=== PATIENT | female | born 1975 | race Caucasian/White ===

== ENCOUNTER 2017-03-06 21:55 | Emergency (ER) | payer BC ==
[~2017-03-06 21:55] MED LIST changes: -IOHEXOL 240 MG/ML 50ML VIAL. ONE; -IOHEXOL 300 MG/ML 75 ML VIAL. IV ONE
[2017-03-06 22:00] VITALS: BP 108/67
[2017-03-06] MEDS ORDERED: IV NORMAL SALINE 1,000ML 1,000 ML IV SCH (23:00)
[2017-03-06] MEDS ORDERED: ONDANSETRON PF 4 MG/2 ML VIAL. IV ONE (23:00)
--- NOTE | 2017-03-06 23:01 | EKG ---
[address] [address] Test Date: 2017-03-06 Test Time: 22:59:43 Pat Name: JESSIE MARTIN Department: Room: Gender: F Rn Home Care: : 1975 Requested By: MILEY ZHU Order Number: [id number] Reading MD: Cesar Merino Measurements Intervals [place] Rate: 57 P: 37 CO: 178 QRS: 59 QRSD: 86 T: 34 QT: 402 QTc: 394 Interpretive Statements SINUS RHYTHM Electronically Signed On 03-12-2017 9:13:56 CDT by Cesar Merino
[2017-03-06] MEDS: MORPHINE SULFATE 2 MG/ML DISP.SYRIN. IV/SQ PRN (23:13)
[2017-03-06 23:21] LABS: BASO % 1 % (0-3); EOS # 0.2 x10^3/uL (0.0-0.7); EOS % 3 % (0-3); HEMATOCRIT 35.9 % (36.0-47.0); HEMOGLOBIN 12.6 g/dL (12.0-15.5); LYMPH # 4.2 x10^3/uL (1.0-4.8); LYMPH % 59 % (24-48); MEAN CORPUSCULAR HEMOGLOBIN 34 pg (25-35); MEAN CORPUSCULAR HGB CONC 35 g/dL (31-37); MEAN CORPUSCULAR VOLUME 96 fL (79-100); MONO # 0.7 x10^3/uL (0.0-1.1); MONO % 10 % (0-9); NEUT % 28 % (31-73); PLATELET COUNT 190 x10^3/uL (140-400); RED BLOOD COUNT 3.75 x10^6/uL (3.50-5.40); WHITE BLOOD COUNT 7.1 x10^3/uL (4.0-11.0)
[2017-03-06 23:24] LABS: BARBITURATES NEG (NEG); BENZODIAZEPINES POS (NEG); CANNABINOIDS POS (NEG); COCAINE NEG (NEG); METHADONE NEG (NEG); OPIATES NEG (NEG); PHENCYCLIDINE NEG (NEG)
[2017-03-06 23:25] LABS: BACTERIA,URINE FEW /HPF (0-FEW); BILIRUBIN,URINE NEG (NEG); CLARITY,URINE CLEAR; COLOR,URINE YELLOW; GLUCOSE,URINE NEG (NEG); NITRITE,URINE POS (NEG); RBC,URINE 0 /HPF (0-2); SQUAMOUS EPITHELIAL CELL,UR FEW /LPF; UROBILINOGEN,URINE 8 mg/dL (0.2 mg/dL)
[2017-03-06 23:29] LABS: AMPHETAMINE/METHAMPHETAMINE POS (NEG)
[2017-03-06 23:33] LABS: PREG TEST PT QUAL NEGATIVE (NEG)
--- NOTE | 2017-03-06 23:37 | ED.ADGEN ---
Past History Past Medical History: No Pertinent History Past Surgical History: No Surgical History Alcohol Use: Occasionally Drug Use: None Adult General Chief Complaint Chief Complaint Abdominal pain HPI HPI Patient is a 41 year old female who presents with 2 days of right upper quadrant/epigastric pain. She states it is a constant not and sometimes is made worse but nothing she does makes it better or worse. She has had some nausea but no vomiting. She denies any constipation or diarrhea. She has had a gastric sleeve, total hysterectomy and laparoscopic surgeries of her abdomen. Review of Systems Review of Systems Constitutional: Denies fever or chills [] Eyes: Denies change in visual acuity, redness, or eye pain [] HENT: Denies nasal congestion or sore throat [] Respiratory: Denies cough or shortness of breath [] Cardiovascular: No additional information not addressed in HPI [] GI: Denies nausea, vomiting, bloody stools or diarrhea, positive for abdominal pain : Denies dysuria or hematuria [] Musculoskeletal: Denies back pain or joint pain [] Integument: Denies rash or skin lesions [] Neurologic: Denies headache, focal weakness or sensory changes [] Endocrine: Denies polyuria or polydipsia [] Current Medications Current Medications Current Medications Medications (Trade) Dose Ordered Sig/Rabia Start Time Stop Time Status Last Admin Dose Admin Lorazepam (Ativan) 1 mg 1X ONCE 03/06/17 23:45 03/06/17 23:46 DC 03/06/17 23:45 1 MG Morphine Sulfate (Morphine 2mg Syringe) 2 mg PRN Q15MIN PRN 03/07/17 00:30 Ondansetron HCl (Zofran) 4 mg 1X ONCE 03/06/17 23:00 03/06/17 23:01 DC 03/06/17 23:00 4 MG Sodium Chloride 1,000 ml @ 1,000 mls/hr Q1H 03/06/17 23:00 03/06/17 23:59 DC 03/06/17 23:00 1,000 MLS/HR Allergies Allergies Allergies Coded Allergies Type Severity Reaction Last Updated Verified No Known Drug Allergies 06/20/15 No Physical Exam Physical Exam Constitutional: Well developed, well nourished, no acute distress, non-toxic appearance. [] HENT: Normocephalic, atraumatic, bilateral external ears normal, oropharynx moist, no oral exudates, nose normal. [] Eyes: PERRLA, EOMI, conjunctiva normal, no discharge. [] Neck: Normal range of motion, no tenderness, supple, no stridor. [] Cardiovascular:Heart rate regular rhythm, no murmur [] Lungs & Thorax: Bilateral breath sounds clear to auscultation [] Abdomen: Bowel sounds normal, off, tender palpation in the right upper quadrant and epigastric area, no rebound or guarding no masses, no pulsatile masses. [] Skin: Warm, dry, no erythema, no rash. [] Back: No tenderness, no CVA tenderness. [] Extremities: No tenderness, no cyanosis, no clubbing, ROM intact, no edema. [] Neurologic: Alert and oriented X 3, normal motor function, normal sensory function, no focal deficits noted. [] Psychologic: Affect normal, judgement normal, mood normal. [] Current Patient Data Vital Signs Vital Signs Date Time Temp Pulse Resp B/P (MAP) Pulse Ox O2 Delivery O2 Flow Rate FiO2 03/07/17 00:26 20 96 Room Air 03/06/17 22:00 98.3 80 108/67 (81) Lab Results Laboratory Tests Test 03/06/17 22:55 White Blood Count 7.1 x10^3/uL (4.0-11.0) Red Blood Count 3.75 x10^6/uL (3.50-5.40) Hemoglobin 12.6 g/dL (12.0-15.5) Hematocrit 35.9 % (36.0-47.0) L Mean Corpuscular Volume 96 fL (79-100) Mean Corpuscular Hemoglobin 34 pg (25-35) Mean Corpuscular Hemoglobin Concent 35 g/dL (31-37) Red Cell Distribution Width 13.0 % (11.5-14.5) Platelet Count 190 x10^3/uL (140-400) Neutrophils (%) (Auto) 28 % (31-73) L Lymphocytes (%) (Auto) 59 % (24-48) H Monocytes (%) (Auto) 10 % (0-9) H Eosinophils (%) (Auto) 3 % (0-3) Basophils (%) (Auto) 1 % (0-3) Neutrophils # (Auto) 2.0 x10^3uL (1.8-7.7) Lymphocytes # (Auto) 4.2 x10^3/uL (1.0-4.8) Monocytes # (Auto) 0.7 x10^3/uL (0.0-1.1) Eosinophils # (Auto) 0.2 x10^3/uL (0.0-0.7) Basophils # (Auto) 0.0 x10^3/uL (0.0-0.2) Prothrombin Time 10.7 SEC (9.4-11.4) Prothrombin Time INR 1.0 (0.9-1.1) PTT 27 SEC (23-33) Urine Collection Type Unknown Urine Color Yellow Urine Clarity Clear Urine pH 6.0 Urine Specific [place] <=1.005 Urine Protein 30 mg/dl (NEG-TRACE) Urine Glucose (UA) Neg mg/dL (NEG) Urine Ketones (Stick) Trace mg/dL (NEG) Urine Blood Neg (NEG) Urine Nitrite Pos (NEG) Urine Bilirubin Neg (NEG) Urine Urobilinogen Dipstick 8 mg/dL (0.2 mg/dL) Urine Leukocyte Esterase Neg (NEG) Urine RBC 0 /HPF (0-2) Urine WBC 1-4 /HPF (0-4) Urine Squamous Epithelial Cells Few /LPF Urine Bacteria Few /HPF (0-FEW) Sodium Level 142 mmol/L (136-145) Potassium Level 3.2 mmol/L (3.5-5.1) L Chloride Level 107 mmol/L (98-107) Carbon Dioxide Level 28 mmol/L (21-32) Anion Gap 7 (6-14) Blood Urea Nitrogen 8 mg/dL (7-20) Creatinine 0.9 mg/dL (0.6-1.0) Estimated GFR (Cockcroft-Gault) 69.7 Glucose Level 100 mg/dL (70-99) H Calcium Level 8.2 mg/dL (8.5-10.1) L Total Bilirubin 0.7 mg/dL (0.2-1.0) Direct Bilirubin 0.4 mg/dL (0.0-0.2) H Aspartate Amino Transferase (AST) 244 U/L (15-37) H Alanine Aminotransferase (ALT) 355 U/L (14-59) H Alkaline Phosphatase 423 U/L (46-116) H Creatine Kinase 43 U/L (26-192) Creatine Kinase MB (Mass) < 0.5 ng/mL (0.0-3.6) Creatine Kinase MB Relative Index 1.2 % (0-4) Troponin I Quantitative < 0.017 ng/mL (0-0.055) Total Protein 6.2 g/dL (6.4-8.2) L Albumin 2.8 g/dL (3.4-5.0) L Lipase 98 U/L (73-393) Serum Test, Qualitative Negative (NEG) Urine Opiates Screen Neg (NEG) Urine Methadone Screen Neg (NEG) Urine Barbiturates Neg (NEG) Urine Phencyclidine Screen Neg (NEG) Urine Amphetamine/Methamphetamine Pos (NEG) Urine Benzodiazepines Screen Pos (NEG) Urine Cocaine Screen Neg (NEG) Urine Cannabinoids Screen Pos (NEG) Urine Ethyl Alcohol Neg (NEG) EKG EKG [] Radiology/Procedures Radiology/[place] [address] IMAGING REPORT Signed PATIENT: JESSIE MARTIN ACCOUNT: [id number] : 1975 LOCATION: ER AGE: 41 SEX: F EXAM STATUS: REG ER ORD. PHYSICIAN: MILEY ZHU MD REASON: abnormal ct of ruq PROCEDURE: ABDOMEN LTD PROCEDURE Limited abdominal ultrasound. HISTORY Right upper quadrant pain, abnormal CT. TECHNIQUE Real-time ultrasound imaging of the right upper quadrant of the abdomen is performed. COMPARISON CT abdomen and pelvis with contrast, earlier same day. FINDINGS Visualized pancreas homogeneous. Pancreas tail is obscured. The IVC is patent. Liver is homogeneous and normal in echotexture. The common bile duct is normal in caliber measuring 5 millimeters. Right hepatic lobe measures 16.2 cm, normal. There are multiple gallstones in the gallbladder with posterior acoustic shadowing. There is wall echo sign. Gallbladder wall is mildly thickened measuring 4 millimeters. Sonographic Simon sign is positive. The right kidney length is 9.7 cm. Appearance is normal, no hydronephrosis. IMPRESSION There are 5 multiple gallstones filling the gallbladder. Gallbladder wall is mildly thickened. Sonographic Simon sign is positive. Findings suggestive of cholecystitis. Electronically signed by: Seth Pappas MD (March 07, 2017 00:06:24) DICTATED AND SIGNED BY: SETH PAPPAS MD DATE: 03/07/17 0006 CC: MILEY ZHU MD; PRICILLA WOMACK APRN ~ [address] [address] IMAGING REPORT Signed PATIENT: JESSIE MARTIN ACCOUNT: [id number] : 1975 LOCATION: CT AGE: 41 SEX: F EXAM STATUS: REG CLI ORD. PHYSICIAN: PRICILLA WOMACK APRN REASON: ELEVATED BILIRUBIN, ABD PAIN, N/V PROCEDURE: CT ABD PELV W/ORAL&IV CONTRAST Exam performed: CT abdomen pelvis with contrast. History: Elevated bilirubin, nausea and vomiting. Date of service: 03/06/17. Comparison: None available Technique: Contiguous helical acquisitions are obtained through the abdomen and pelvis during intravenous administration of 75 cc of Omnipaque 300. Sagittal and coronal reformatted images are obtained and reviewed. Findings: Lung bases are clear. Minimal right basilar atelectasis. Visualized heart is normal. The liver, spleen and pancreas are normal. There is suggestion of pericholecystic fluid and no definite evidence of cholelithiasis. Both adrenal glands and bilateral kidneys are normal in size with symmetric excretion of contrast via both kidneys. There is no hydronephrosis or nephrolithiasis. Aorta is normal in caliber without aneurysm. No retroperitoneal or mesenteric lymphadenopathy seen. Small and large bowel loops are nondilated and unremarkable. There is scattered stool in the colon. Appendix is normal. The urinary bladder is well distended. Uterus is surgically absent. No adnexal masses seen. No free or focal fluid collections or pelvic lymphadenopathy. Interrogation of bone windows is unremarkable. Impression: 1. No acute intra-abdominal or pelvic process detected. 2. Suggestion of pericholecystic fluid. Evaluation with right upper quadrant ultrasound may be of additional benefit to evaluate possibility of cholelithiasis and or acute cholecystitis. 3. Scattered stool in the colon. Correlate clinically for constipation. PQRS Compliance Statement: One or more of the following individualized dose reduction techniques were utilized for this examination: 1. Automated exposure control 2. Adjustment of the mA and/or kV according to patient size 3. Use of iterative reconstruction technique DICTATED AND SIGNED BY: DORIS TOURE MD DATE: 03/06/17 0714 CC: PRICILLA WOMACK APRN ~ Course & Med Decision Making Course & Med Decision Making Pertinent Labs and Imaging studies reviewed. (See chart for details) Past medical history consists of a gastric sleeve, hysterectomy, endoscopic laparotomy secondary for endometriosis. She states her gastric sleeve was placed 3 years ago she lost approximately [address] scan is concerning for cholecystitis with right upper quadrant ultrasound that confirms with a positive Simon sign. Spoke with Dr. Avila regarding the patient's condition, vital signs, labs who did not want antibiotics started at this time. Patient is being transferred via private vehicle per dad's request to save money for admission to the hospitalist. Patient is in stable condition at this time being admitted to [place]. Final Impression Final Impression Abdominal pain Nausea Cholecystitis [] Problems: Dragon Disclaimer Dragon Disclaimer This electronic medical record was generated, in whole or in part, using a voice recognition dictation system. MILEY ZHU MD March 06, 2017 23:37
[2017-03-06 23:39] LABS: ALBUMIN 2.8 g/dL (3.4-5.0); ALK PHOS 423 U/L (46-116); ALT (SGPT) 355 U/L (14-59); ANION GAP 7 (6-14); AST (SGOT) 244 U/L (15-37); BLOOD UREA NITROGEN 8 mg/dL (7-20); CALCIUM 8.2 mg/dL (8.5-10.1); CARBON DIOXIDE 28 mmol/L (21-32); CHLORIDE 107 mmol/L (98-107); CREATINE KINASE 43 U/L (26-192); CREATININE 0.9 mg/dL (0.6-1.0); DIRECT BILIRUBIN 0.4 mg/dL (0.0-0.2); GFR 69.7; GLUCOSE 100 mg/dL (70-99); LIPASE 98 U/L (73-393); POTASSIUM 3.2 mmol/L (3.5-5.1); SODIUM 142 mmol/L (136-145); TOTAL BILIRUBIN 0.7 mg/dL (0.2-1.0); TOTAL PROTEIN 6.2 g/dL (6.4-8.2)
[2017-03-06] MEDS ORDERED: LORazepam 2 MG/ML VIAL IV ONE (23:45)
--- NOTE | 2017-03-07 00:08 | RAD ---
PROCEDURE Limited abdominal ultrasound. HISTORY Right upper quadrant pain, abnormal CT. TECHNIQUE Real-time ultrasound imaging of the right upper quadrant of the abdomen is performed. COMPARISON CT abdomen and pelvis with contrast, earlier same day. FINDINGS Visualized pancreas homogeneous. Pancreas tail is obscured. The IVC is patent. Liver is homogeneous and normal in echotexture. The common bile duct is normal in caliber measuring 5 millimeters. Right hepatic lobe measures 16.2 cm, normal. There are multiple gallstones in the gallbladder with posterior acoustic shadowing. There is wall echo sign. Gallbladder wall is mildly thickened measuring 4 millimeters. Sonographic Simon sign is positive. The right kidney length is 9.7 cm. Appearance is normal, no hydronephrosis. IMPRESSION There are 5 multiple gallstones filling the gallbladder. Gallbladder wall is mildly thickened. Sonographic Simon sign is positive. Findings suggestive of cholecystitis. Electronically signed by: Seth Pappas MD (March 07, 2017 00:06:24)
[2017-03-07] MEDS: MORPHINE SULFATE 2 MG/ML DISP.SYRIN. IV/SQ PRN (00:26)
[2017-03-07] MEDS: MORPHINE SULFATE 2 MG/ML DISP.SYRIN. IV PRN ×2 (01:45→01:55)
== END 2017-03-07 01:55 | disposition short-term general hospital (02) ==
LOC: ER 21:57
DX: K81.9 Cholecystitis, unspecified (principal)
CPT/HCPCS: 36415; 76705; 80048; 80076; 80305; 81001; 82553; 83690; 84484; 84703; 85027; 85610; 85730; 87086; 93005; 96361; 96374; 96375; 96376; 99285; J2060; J2270; J2405; G0481; J7030

== ENCOUNTER → 2017-03-06 | Outpatient (CLI) | payer BC ==
[2015-06-21 17:48] VITALS: BP 114/67
[~2017-03-06] MED LIST: ALBU6.7H IH; ALEN35TA6 PO; IOHEXOL 240 MG/ML 50ML VIAL. ONE; IOHEXOL 300 MG/ML 75 ML VIAL. IV ONE; OMEP40CA5 PO; OSPE60TA2 PO
--- NOTE | 2017-03-06 16:14 | RAD ---
Exam performed: CT abdomen pelvis with contrast. History: Elevated bilirubin, nausea and vomiting. Date of service: 03/06/17. Comparison: None available Technique: Contiguous helical acquisitions are obtained through the abdomen and pelvis during intravenous administration of 75 cc of Omnipaque 300. Sagittal and coronal reformatted images are obtained and reviewed. Findings: Lung bases are clear. Minimal right basilar atelectasis. Visualized heart is normal. The liver, spleen and pancreas are normal. There is suggestion of pericholecystic fluid and no definite evidence of cholelithiasis. Both adrenal glands and bilateral kidneys are normal in size with symmetric excretion of contrast via both kidneys. There is no hydronephrosis or nephrolithiasis. Aorta is normal in caliber without aneurysm. No retroperitoneal or mesenteric lymphadenopathy seen. Small and large bowel loops are nondilated and unremarkable. There is scattered stool in the colon. Appendix is normal. The urinary bladder is well distended. Uterus is surgically absent. No adnexal masses seen. No free or focal fluid collections or pelvic lymphadenopathy. Interrogation of bone windows is unremarkable. Impression: 1. No acute intra-abdominal or pelvic process detected. 2. Suggestion of pericholecystic fluid. Evaluation with right upper quadrant ultrasound may be of additional benefit to evaluate possibility of cholelithiasis and or acute cholecystitis. 3. Scattered stool in the colon. Correlate clinically for constipation. PQRS Compliance Statement: One or more of the following individualized dose reduction techniques were utilized for this examination: 1. Automated exposure control 2. Adjustment of the mA and/or kV according to patient size 3. Use of iterative reconstruction technique
== END | disposition home or self-care (01) ==
LOC: US 15:03
PROVIDERS: ATTEND Nurse Practitioner Family
DX: K59.00 Constipation, unspecified (principal); E80.6 Other disorders of bilirubin metabolism; R11.2 Nausea with vomiting, unspecified
CPT/HCPCS: 74177; Q9966; Q9967

== ENCOUNTER → 2018-07-23 | Outpatient (CLI) | payer BC ==
[2018-07-23 15:46] LABS: BASO % 0 % (0-3); EOS # 0.3 x10^3/uL (0.0-0.7); EOS % 3 % (0-3); HEMATOCRIT 35.6 % (36.0-47.0); HEMOGLOBIN 12.2 g/dL (12.0-15.5); LYMPH % 31 % (24-48); MEAN CORPUSCULAR HEMOGLOBIN 35 pg (25-35); MEAN CORPUSCULAR HGB CONC 34 g/dL (31-37); MEAN CORPUSCULAR VOLUME 102 fL (79-100); MONO # 0.7 x10^3/uL (0.0-1.1); MONO % 8 % (0-9); NEUT # 5.5 x10^3uL (1.8-7.7); NEUT % 58 % (31-73); PLATELET COUNT 192 x10^3/uL (140-400); RED BLOOD COUNT 3.48 x10^6/uL (3.50-5.40); RED CELL DISTRIBUTION WIDTH 13.3 % (11.5-14.5); WHITE BLOOD COUNT 9.5 x10^3/uL (4.0-11.0)
[2018-07-23 15:54] LABS: CREATININE 0.9 mg/dL (0.6-1.0); GFR 69.3
[2018-07-23 16:49] LABS: SEDIMENTATION RATE 10 (0-25)
== END | disposition home or self-care (01) ==
LOC: SPEC 14:24
PROVIDERS: ATTEND Internal Medicine Nephrology
DX: Z79.2 Long term (current) use of antibiotics (principal)
CPT/HCPCS: 36415; 82550; 82565; 84520; 85025; 85651

== ENCOUNTER → 2018-07-30 | Outpatient (CLI) | payer BC ==
[2018-07-30 16:07] LABS: BASO % 1 % (0-3); EOS # 0.2 x10^3/uL (0.0-0.7); EOS % 3 % (0-3); HEMATOCRIT 35.8 % (36.0-47.0); HEMOGLOBIN 12.2 g/dL (12.0-15.5); LYMPH # 2.6 x10^3/uL (1.0-4.8); LYMPH % 36 % (24-48); MEAN CORPUSCULAR HEMOGLOBIN 35 pg (25-35); MEAN CORPUSCULAR HGB CONC 34 g/dL (31-37); MEAN CORPUSCULAR VOLUME 103 fL (79-100); MONO # 0.4 x10^3/uL (0.0-1.1); MONO % 6 % (0-9); NEUT # 4.1 x10^3uL (1.8-7.7); NEUT % 56 % (31-73); PLATELET COUNT 297 x10^3/uL (140-400); RED BLOOD COUNT 3.47 x10^6/uL (3.50-5.40); WHITE BLOOD COUNT 7.3 x10^3/uL (4.0-11.0)
[2018-07-30 16:14] LABS: CREATININE 0.9 mg/dL (0.6-1.0); GFR 69.3
[2018-07-30 17:10] LABS: SEDIMENTATION RATE 16 (0-25)
== END | disposition home or self-care (01) ==
LOC: SPEC 15:51
PROVIDERS: ATTEND Nurse Practitioner Family
DX: Z45.2 Encounter for adjustment and management of vascular access device (principal)
CPT/HCPCS: 36415; 82550; 82565; 84520; 85025; 85651

== ENCOUNTER 2021-07-26 14:20 | Emergency (ER) | payer BC ==
[~2021-07-26] VITALS: Ht 154.9 cm; Wt 100.0 kg
[~2021-07-26 14:20] MED LIST changes: +ALBU2.5V8 IH; -ALBU6.7H IH; +ALEN35TA47 PO; -ALEN35TA6 PO; -OMEP40CA5 PO; +OMEP40CA7 PO
--- NOTE | 2021-07-26 14:37 | PHYS DOC ---
Past History Past Medical History: Anxiety, Depression (DERIK MATA DO) Past Surgical History: , Hysterectomy (DERIK MATA DO) Alcohol Use: Occasionally Drug Use: None (DERIK MATA DO) General Adult HPI: HPI: 45-year-old female past medical history of anxiety depression with history of Tylenol overdose (per EMR review 2014), presents the ED brought in by EMS, with complaints of " I am drunk as fuck." EMS reports concern for overdosing, taking 5 tablets of pts' boyfriends' seroquel 400mg (picture on phone w/friend at bedside), last night around 9pm. Patient also states she took gabapentin. Patient is alert to month, year, president, name and situation but is a poor historian due to intoxicated state. Pt states "I swear to God I didn't take any tylenol, only my boyfriend's medication." (DERIK MATA DO) Review of Systems: Review of Systems: Constitutional: Denies fever or chills Eyes: Denies change in visual acuity HENT: Denies nasal congestion or sore throat Respiratory: Denies cough or shortness of breath Cardiovascular: Denies chest pain or edema GI: Denies abdominal pain, nausea, vomiting,or diarrhea : Denies dysuria or hematuria Musculoskeletal: Denies back pain or joint pain Integument: Denies rash or vaginal bleeding Neurologic: Denies headache, focal weakness or sensory changes Endocrine: Denies polyuria or polydipsia Lymphatic: Denies swollen glands Psychiatric: Denies depression or anxiety (DERIK MATA DO) Allergies: Allergies: Allergies Coded Allergies Type Severity Reaction Last Updated Verified No Known Drug Allergies 06/20/15 No (DERIK MATA DO) Physical Exam: PE: Constitutional: Unkept, disheveled appearance, afebrile, nontoxic-appearing, HENT: Normocephalic, atraumatic, dry mucous membranes, no signs of trauma Eyes: PERRLA (2mm bl), EOMI, conjunctiva normal, no discharge. Neck: Normal range of motion, supple, no midline neck pain Cardiovascular: S1/2 present, regular rhythm Lungs & Thorax: Speaking in full sentences, bilateral equal chest rise, no tachy pnea or increased work of breathing Abdomen: soft, no tenderness, obese Skin: Warm, dry, no erythema, no rash or diaphoresis Back: No midline step-offs or tenderness, no CVA tenderness. [] Extremities: No tenderness, no cyanosis, no lower extremity edema, no clonus Neurologic: Alert and oriented X 3, normal motor function, normal sensory function, no focal deficits noted, ataxic movements present Psychologic: Flat affect, apathetic mood (DERIK MATA DO) EKG: EKG: Sinus rhythm 85 bpm, no axis deviation, QTC 471, T wave inversion lead III, Q waves lead III and aVF, no ST elevation or ST depression (DERIK MATA DO) Radiology/Procedures: Radiology/Procedures: []IMAGING REPORT Signed PATIENT: JESSIE MARTINOUNT: [id number] : 1975 LOCATION: ER AGE: 45 SEX: F EXAM STATUS: REG ER ORD. PHYSICIAN: DERIK MATA DO REASON: ams PROCEDURE: CT HEAD WO CONTRAST CT HEAD/BRAIN WO Date: 07/26/2021 3:18 PM Clinical Indication: Reason: ams / Spl. Instructions: / History: Comparison: None. Technique: 5 mm axial tomographic images were obtained of the head without contrast. These were viewed on brain and bone windows. One or more of the following dose reduction techniques were utilized: Automated exposure control (AEC), Adjustment of mA and/or kV according to patient size, Use of iterative reconstruction technique such as ASiR, CT scan done according to ALARA and image gently/image wisely Findings: The brain parenchyma is normal in attenuation. No intra- or extra-axial mass or fluid collection. No acute hemorrhage. The ventricles are normal in size, shape, and morphology. The sen-white matter junction is normal. The subarachnoid cisterns are patent. The visualized paranasal sinuses are normal. The visualized portions of the orbits and globes are normal. The mastoid air cells are clear. The sanding machine operator topogram shows no lytic lesion or fracture. Impression: No acute intracranial process. Electronically signed by: Adán Kaufman MD (07/26/2021 3:21 PM) [id number] DICTATED AND SIGNED BY: ADÁN KAUFMAN MD DATE: 07/26/21 1521 CC: PRICILLA WOMACK APRN; DERIK MATA DO ~MTH0 0 IMAGING REPORT Signed PATIENT: JESSIE MARTINOUNT: [id number] : 1975 LOCATION: ER AGE: 45 SEX: F EXAM STATUS: REG ER ORD. PHYSICIAN: DERIK MATA DO REASON: ams PROCEDURE: PORTABLE CHEST 1V Single view of the chest. 07/26/2021 3:18 PM Indication: Reason: ams / Spl. Instructions: / History: Comparison: Chest radiograph May 28, 2014 Findings: Lower volumes noted with mild basilar atelectasis. No pneumothorax, or effusion is seen. Heart size is normal given technique. No acute osseous changes are identified. Postoperative changes in the cervical spine noted. IMPRESSION: Low lung volumes with mild basilar atelectasis Electronically signed by: Marcelo Nails MD (07/26/2021 3:27 PM) [id number] DICTATED AND SIGNED BY: MARCELO NAILS MD DATE: 07/26/21 1526 CC: PRICILLA WOMACK APRN; DERIK MATA DO ~MTH0 0 (DERIK MATA DO) Heart Score: C/O Chest Pain: No Risk Factors: Risk Factors: DM, Current or recent (<one month) smoker, HTN, HLP, family history of CAD, obesity. Risk Scores: Score 0 - 3: 2.5% MACE over next 6 weeks - Discharge Home Score 4 - 6: 20.3% MACE over next 6 weeks - Admit for Clinical Observation Score 7 - 10: 72.7% MACE over next 6 weeks - Early Invasive Strategies (DERIK MATA DO) Course & Med Decision Making: Course & Med Decision Making Pertinent Labs and Imaging studies reviewed. (See chart for details) Concern for Seroquel overdose in the setting of nonspecific transaminitis and polysubstance abuse, incidental finding of urinary tract infection. Covid test, pat consult and repeat troponin pending (troponin due to initial level on the higher end of normal-pt with no chest pain). Patient now more awake and alert and cooperative but still appears intoxicated. Due to shift change patient was signed out to oncoming physician for further medical evaluation and disposition, Dr. Ruiz. (DERIK MATA DO) Course & Med Decision Making Patient care handed off to me at checkout pending placement. Patient alert and oriented no acute distress. Laboratory analysis notable for probable UTI. Drug screen notable for amphetamine, alcohol and benzodiazepines. Patient otherwise cooperative and eating. [facility] Patient grateful, verbalized understanding and agreed with plan of admission. (JESSICA CHAVIS MD) Dragon Disclaimer: Dragon Disclaimer: This electronic medical record was generated, in whole or in part, using a voice recognition dictation system. (DERIK MATA DO) Departure Departure: Impression: Primary Impression: Medication overdose Additional Impressions: Polysubstance abuse Suicide attempt UTI (urinary tract infection) Disposition: PS[facility]CHIATRIC HOSPITAL Condition: STABLE Referrals: PRICILLA WOMACK APRN (PCP) DERIK MATA DO Jul 26, 2021 14:37 JESSICA CHAVIS MD Jul 27, 2021 02:43
[2021-07-26] MEDS: IV NORMAL SALINE 1,000ML 1,000 ML IV ONE (14:45)
[2021-07-26 14:54] LABS: BASO % 0 % (0-3); EOS % 0 % (0-3); HEMATOCRIT 38.2 % (36.0-47.0); HEMOGLOBIN 13.1 g/dL (12.0-15.5); LYMPH # 2.1 x10^3/uL (1.0-4.8); LYMPH % 23 % (24-48); MEAN CORPUSCULAR HEMOGLOBIN 36 pg (25-35); MEAN CORPUSCULAR HGB CONC 34 g/dL (31-37); MEAN CORPUSCULAR VOLUME 105 fL (79-100); MONO # 0.6 x10^3/uL (0.0-1.1); MONO % 6 % (0-9); NEUT # 6.3 x10^3uL (1.8-7.7); NEUT % 70 % (31-73); PLATELET COUNT 222 x10^3/uL (140-400); RED BLOOD COUNT 3.65 x10^6/uL (3.50-5.40); RED CELL DISTRIBUTION WIDTH 14.8 % (11.5-14.5)
[2021-07-26 15:01] LABS: PREG TEST PT QUAL NEGATIVE (NEG)
[2021-07-26 15:02] LABS: CALCIUM 9.2 mg/dL (8.5-10.1); GFR 60.5; POTASSIUM 3.7 mmol/L (3.5-5.1)
[2021-07-26 15:09] LABS: ETHANOL < 10 mg/dL (0-10); SALIC 5.5 mg/dL (2.8-20.0)
[2021-07-26 15:10] LABS: ACETAMIN < 2.0 mcg/mL (10-30)
[2021-07-26 15:15] LABS: ALBUMIN 3.4 g/dL (3.4-5.0); DIRECT BILIRUBIN 0.3 mg/dL (0.0-0.2); MAGNESIUM 2.1 mg/dL (1.8-2.4); TOTAL BILIRUBIN 0.7 mg/dL (0.2-1.0); TOTAL PROTEIN 6.6 g/dL (6.4-8.2)
--- NOTE | 2021-07-26 15:23 | RAD ---
CT HEAD/BRAIN WO Date: 07/26/2021 3:18 PM Clinical Indication: Reason: ams / Spl. Instructions: / History: Comparison: None. Technique: 5 mm axial tomographic images were obtained of the head without contrast. These were view ed on brain and bone windows. One or more of the following dose reduction techniques were utilized: A utomated exposure control (AEC), Adjustment of mA and/or kV according to patient size, Use of iterati ve reconstruction technique such as ASiR, CT scan done according to ALARA and image gently/image jimenez ly Findings: The brain parenchyma is normal in attenuation. No intra- or extra-axial mass or fluid collection. No acute hemorrhage. The ventricles are normal in size, shape, and morphology. The sen-white matter armen ction is normal. The subarachnoid cisterns are patent. The visualized paranasal sinuses are normal. The visualized portions of the orbits and globes are no rmal. The mastoid air cells are clear. The quality assurance/r&d lab technician topogram shows no lytic lesion or fracture. Impression: No acute intracranial process. Electronically signed by: Saul Kaufman MD (07/26/2021 3:21 PM) [id number]
[2021-07-26 15:27] LABS: BARBITURATES NEG (NEG); BENZODIAZEPINES POS (NEG); CANNABINOIDS POS (NEG); COCAINE NEG (NEG); METHADONE NEG (NEG); OPIATES NEG (NEG); PHENCYCLIDINE NEG (NEG)
[2021-07-26 15:28] LABS: BILIRUBIN,URINE SMALL (NEG); CLARITY,URINE CLEAR; COLOR,URINE YELLOW; GLUCOSE,URINE NEG (NEG)
[2021-07-26 15:29] LABS: BACTERIA,URINE MOD /HPF (0-FEW); NITRITE,URINE NEG (NEG); SQUAMOUS EPITHELIAL CELL,UR MOD /LPF; UROBILINOGEN,URINE 0.2 mg/dL (0.2 mg/dL)
--- NOTE | 2021-07-26 15:30 | RAD ---
Single view of the chest. 07/26/2021 3:18 PM Indication: Reason: ams / Spl. Instructions: / History: Comparison: Chest radiograph May 28, 2014 Findings: Lower volumes noted with mild basilar atelectasis. No pneumothorax, or effusion is seen. He art size is normal given technique. No acute osseous changes are identified. Postoperative changes in the cervical spine noted. IMPRESSION: Low lung volumes with mild basilar atelectasis Electronically signed by: Marcelo Nails MD (07/26/2021 3:27 PM) [id number]
[2021-07-26 15:31] LABS: AMPHETAMINE/METHAMPHETAMINE POS (NEG)
[2021-07-26] MEDS ORDERED: IV NORMAL SALINE 50ML 50 ML ONE (16:48)
[2021-07-26] MEDS ORDERED: cefTRIAXone SODIUM 1 GM VIAL ONE (16:48)
[2021-07-26] MEDS: MVI, ADULT NO.4 WITH VIT K 10 ML, FOLIC ACID INJ 1 MG, THIAMINE INJ 100 MG in IV RINGER... IV ONE (16:51)
--- NOTE | 2021-07-26 19:39 | EKG ---
[address] [address] Test Date: 2021-07-26 Test Time: 14:35:50 Pat Name: JESSIE MARTIN Department: Room: Gender: F Bail Attacher: IZABEL : 1975 Requested By: DERIK MATA Order Number: [id number] Reading MD: Measurements Intervals [place] Rate: 85 P: 16 [place]: 150 QRS: 28 QRSD: 88 T: 33 QT: 396 QTc: 471 Interpretive Statements SINUS RHYTHM PROLONGED QT NO SPECIFIC ECG ABNORMALITIES RI6.02 No previous ECG available for comparison
[2021-07-27] MEDS: IV RINGERS SOLUTION,LACTATED 1,000 ML IV ONE (05:47)
[2021-07-27] MEDS: NICOTINE 21MG PATCH. TD ONE (10:23)
[2021-07-27 10:30] VITALS: BP 112/56
== END 2021-07-27 13:39 ==
LOC: EEVIPCON 14:20 → ER 14:20
DX: T43.592A Poisoning by other antipsychotics and neuroleptics, intentional self-harm, initial encounter (principal); F19.10 Other psychoactive substance abuse, uncomplicated; N39.0 Urinary tract infection, site not specified; F41.9 Anxiety disorder, unspecified; F32.9 Major depressive disorder, single episode, unspecified; Z20.822 Contact with and (suspected) exposure to COVID-19; Y92.89 Other specified places as the place of occurrence of the external cause
CPT/HCPCS: 36415; 70450; 71045; 80048; 80076; 80307; 80329; 81001; 82550; 83735; 83880; 84484; 84703; 85025; 85610; 85730; 87086; 87426; 93005; 96361; 96365; 96366; 96368; 99285; G0480; J0696; J7030; J7120; U0003